=== PATIENT | female | born 1965 | race Caucasian/White ===

== ENCOUNTER 2018-04-16 19:10 | Emergency (ER) | payer OTHER ==
[~2018-04-16] VITALS: Ht 160 cm; Wt 72.6 kg
[2018-04-17] MEDS ORDERED: CLINDAMYCIN PHOS 600 MG/ 4 ML VIAL IM ONE (00:45)
[2018-04-17] MEDS ORDERED: DIPHENHYDRAMINE HCL 25 MG CAP PO ONE (00:45)
[2018-04-17] MEDS ORDERED: LEVOFLOXACIN 500 MG TAB PO ONE (00:45)
[2018-04-17] MEDS ORDERED: CLINDAMYCIN PHOS 300MG/2ML VIAL ONE (00:58)
[2018-04-17 01:23] VITALS: BP 142/81
== END 2018-04-17 01:54 | disposition home or self-care (01) ==
LOC: ER 19:10
DX: L03.113 Cellulitis of right upper limb (principal); S60.561A Insect bite (nonvenomous) of right hand, initial encounter; T78.40XA Allergy, unspecified, initial encounter; W57.XXXA Bitten or stung by nonvenomous insect and other nonvenomous arthropods, initial encounter
CPT/HCPCS: 99282